=== PATIENT | male | born 2000 | race Two or more races ===

== ENCOUNTER 2022-12-15 15:31 | Emergency (ER) | payer BC ==
[~2022-12-15] VITALS: Ht 172.7 cm; Wt 56.7 kg
[2022-12-15 16:04] VITALS: BP 116/65
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
--- NOTE | 2022-12-15 16:22 | NUR ---
IN BEDSIDE FOR EVAL
--- NOTE | 2022-12-15 17:33 | NUR ---
Pt refused further treatment at this time and wants to leave AMA. explained risks of signing out. Pt states understanding and signed form
== END 2022-12-15 17:35 | disposition home or self-care (01) ==
LOC: ER 15:42
DX: S06.0XAA Concussion with loss of consciousness status unknown, initial encounter (principal); Z60.2 Problems related to living alone; V89.2XXA Person injured in unspecified motor-vehicle accident, traffic, initial encounter; Y93.89 Activity, other specified; Y92.89 Other specified places as the place of occurrence of the external cause; Y99.8 Other external cause status
CPT/HCPCS: 70450-TC; 72125-TC